=== PATIENT | male | born 1970 | race Caucasian/White ===

== ENCOUNTER 2017-06-06 15:37 | Emergency (ER) | payer BC ==
[2017-06-06 16:22] VITALS: BP 130/85
[2017-06-06] MEDS ORDERED: Fluorescein Sod TOPICAL 0.6* 0.6 MG TEST OPHTHALMIC ONE (16:24)
--- NOTE | 2017-06-06 16:33 | UC ---
Eye Complaint HPI - HPI Summary HPI Summary: pt notes some swelling and irritation to his L eye. he rubbed it with a warm cloth and thinks irritated it. denies injury, discharge and visual loss. no uri. - History of Current Complaint Chief Complaint: UCEye Stated Complaint: EYE COMPLAINT (L) Time Seen by Provider: 06/06/17 16:23 Hx Obtained From: Patient Onset/Duration: Gradual Onset Timing: Constant Pain Intensity: 0 Alleviating Factor(s): Nothing Associated Signs And Symptoms: Negative: Photophobia, Drainage (Clear), Drainage (Purulent), Vision Impairment Bilateral, Fever - Risk Factors Penetrating Injury Risk Factor: Negative Acute Glaucoma Risk Factors: Negative - Allergies/Home Medications Allergies/Adverse Reactions: Allergies Allergy/AdvReac Type Severity Reaction Status Date / Time No Known Allergies Allergy Verified 06/06/17 16:22 Home Medications: Home Medications Pantoprazole TAB (NF) [Protonix TAB (NF)] 40 mg PO DAILY 06/06/17 [History Confirmed 06/06/17] PMH/Surg Hx/FS Hx/Imm Hx GI/ History: Gastroesophageal Reflux - Surgical History Surgical History: Yes Surgery Procedure, Year, and Place: gastric bypass 2011 - Family History Family History: no known cardio-vascular disorders - Social History Occupation: Employed Full-time Lives: With Family Alcohol Use: Occasionally Substance Use Type: None Smoking Status (MU): Never Smoked Tobacco - Immunization History Most Recent Influenza Vaccination: 2011 Most Recent Tetanus Shot: 06/12/2012 Vaccination Up to Date: Yes Review of Systems Constitutional: Negative Skin: Negative Eyes: Eye Redness - L upper lid ENT: Negative Respiratory: Negative Cardiovascular: Negative Gastrointestinal: Negative Genitourinary: Negative Motor: Negative Neurovascular: Negative Musculoskeletal: Negative Neurological: Negative Psychological: Negative Is Patient Immunocompromised?: No All Other Systems Reviewed And Are Negative: Yes Physical Exam Triage Information Reviewed: Yes Appearance: Well-Appearing Vital Signs: Initial Vital Signs Temp 98.7 F 06/06/17 16:17 Pulse 63 06/06/17 16:17 Resp 17 06/06/17 16:17 BP 130/85 06/06/17 16:17 Pulse Ox 98 06/06/17 16:17 Vital Signs Reviewed: Yes Eyes: Positive: Other: - No periorbital edema or erythema. PERRL, EOMI. Conjunctiva clear. AC's clear. Slight erythema and swelling to L upper lid, medial lash line that extends to just inside the lid. L lids everted and no FB' s. Stain to L eye and no abrsaions, ulcerations or dendrites. No auricular adenopathy. ENT: Positive: Pharynx normal, TMs normal. Negative: Nasal congestion, Nasal drainage Neck: Positive: Supple, Nontender, No Lymphadenopathy Respiratory: Positive: Lungs clear, Normal breath sounds Cardiovascular: Positive: RRR, No Murmur Abdomen Description: Positive: Nontender, No Organomegaly, Soft Bowel Sounds: Positive: Present Musculoskeletal: Positive: ROM Intact Neurological: Positive: Alert Psychological: Positive: Normal Response To Family, Age Appropriate Behavior Skin Exam: Normal Eye Complaint Course/Dx - Differential Dx/Diagnosis Provider Diagnoses: Sty L upper lid Discharge - Sign-Out/Discharge Documenting (check all that apply): Discharge/Admit/Transfer - Discharge Plan Condition: Stable Disposition: HOME Prescriptions: Erythromycin OPTH OINT* [Erythromycin 0.5% OPTH OINT*] 1 applic LEFT EYE TID 7 Days #1 ophth.oint Patient Education Materials: Christa (ED) Referrals: Whitney Murillo [Primary Care Provider] - If Needed Wil Gastelum MD [Medical Doctor] - 5 Days - Billing Disposition and Condition Condition: STABLE Disposition: HOME
== END 2017-06-06 16:40 | disposition home or self-care (01) ==
LOC: UCCORT 15:37
DX: H00.024 Hordeolum internum left upper eyelid (principal)
CPT/HCPCS: 99212; G0463